=== PATIENT | female | born 1955 | race African-American/Black ===

== ENCOUNTER 2017-12-10 12:55 | Inpatient (IN) ==
[2017-12-10] MEDS ORDERED: hydrALAZINE 20 MG/1 ML VIAL IV STA ×2 (13:21→16:43)
[2017-12-10] MEDS ORDERED: levETIRAcetam 500 MG/5 ML VIAL IV ONE (13:23)
[2017-12-10] MEDS ORDERED: hydrALAZINE 20 MG/1 ML VIAL ONE ×2 (13:24→17:26)
[2017-12-10 15:34] LABS: Alanine Aminotransferase 13 U/L (13-56); Albumin 3.3 G/DL (3.4-5.0); Alkaline Phosphatase 79 U/L (45-117); Aspartate Amino Transferase 27 U/L (0-37); Blood Urea Nitrogen 11 MG/DL (7-18); Calcium 6.6 MG/DL (8.5-10.1); Glucose 84 MG/DL (74-106); Osmolality,Calculated 274.5 MOS/KG (273-304); Potassium 3.4 MMOL/L (3.5-5.1); Sodium 139 MMOL/L (136-145); Total Protein 8.1 G/DL (6.4-8.3)
[2017-12-10 15:35] LABS: Troponin I Only 0.733 NG/ML (0.00-0.045)
[2017-12-10 15:47] LABS: INR 1.1; PT Patient Result 11.3 SECS; Partial Thromboplastin Time 22.3 SECS (0-40)
[2017-12-10 15:56] LABS: Basophils % 0.5 % (0.0-0.8); Eosinophils # 0.2 10*3/uL (0.0-0.87); Eosinophils % 3.3 % (0.00-10.9); Hemoglobin 8.4 GM/DL (12.0-16.0); Immature Granulocytes % 0.5 %; Immature Granulocytes Absolute 0.03 #; Lymphocytes # 1.1 10*3/uL (1.4-4.0); Lymphocytes % 18.3 % (21.3-54.2); Mean Corpuscular HGB Conc 28.6 GM/DL (32-36); Mean Corpuscular Hemoglobin 26 PG (27-34); Mean Corpuscular Volume 89.1 FL (87-102); Mean Platelet Volume 11.6 FL (9.6-12.0); Monocytes # 0.6 10*3/uL (0.11-0.8); Monocytes % 10.1 % (1.7-12.7); Neutrophils # 4.1 10*3/uL (1.4-7.4); Neutrophils % 67.3 % (38.7-73.9); Platelet Count 216 T/CUMM (130-400); Red Cell Distribution Width 16.4 % (9.3-17.3); White Blood Count 6.1 T/CUMM (4-12)
[2017-12-10 15:59] LABS: Hematocrit 29.4 VOL% (35.7-47.0)
[2017-12-10 16:10] LABS: Apearance,Urine CLEAR (Clear); Bilirubin,Urine Negative (Negative); Blood, Urine Negative (Negative); Glucose,Urine (UA) Negative (Negative); Ketones,Urine Negative (Negative); Nitrite,Urine Negative (Negative); Protein,Urine Negative; Urine Color Colorless (Yellow); Urine Specific Gravity 1.002 (1.001-1.035); Urine Urobilinogen < 2.0 EU/DL (0.2-1.0); WBC,Urine 1 /HPF (0-6)
[2017-12-10] MEDS ORDERED: NITROGLYCERIN 2% OINT 1 INCH/GM PACK TOP STA (16:11)
[2017-12-10] MEDS ORDERED: ASPIRIN 325 MG TABLET PO STA (16:11)
[2017-12-10] MEDS ORDERED: NITROGLYCERIN 2% OINT 1 INCH/GM PACK TOP ONE (16:12)
[2017-12-10] MEDS ORDERED: ASPIRIN 325 MG TABLET ONE (16:12)
[2017-12-10] MEDS ORDERED: METOPROLOL TARTRATE 5 MG/5 ML VIAL IV STA (16:23)
[2017-12-10] MEDS ORDERED: METOPROLOL TARTRATE 5 MG/5 ML VIAL IV ONE (17:26)
[2017-12-10] MEDS ORDERED: ONDANSETRON 4 MG/2 ML VIAL IV PRN (18:49)
[2017-12-10] MEDS ORDERED: DOCUSATE SODIUM 100 MG CAPSULE PO PRN (18:49)
[2017-12-10] MEDS: ENOXAPARIN 40 MG/0.4 ML SYRINGE SUBCUT SCH (19:52)
[2017-12-10] MEDS: MORPHINE 10 MG/1 ML VIAL IV PRN (19:53)
[2017-12-11] MEDS: MORPHINE 10 MG/1 ML VIAL IV PRN ×3 (00:55→16:30)
[2017-12-11 06:27] LABS: Calcium 6.3 MG/DL (8.5-10.1); Potassium 3.1 MMOL/L (3.5-5.1)
[2017-12-11] MEDS ORDERED: MAGNESIUM SULF RIDER 4 GM in PREMIX 1 EACH IV PRN (07:37)
[2017-12-11] MEDS ORDERED: MAGNESIUM SULF RIDER 2 GM in PREMIX 1 EACH IV PRN (07:37)
[2017-12-11] MEDS ORDERED: clonazePAM 0.5 MG TABLET PO PRN (07:38)
[2017-12-11] MEDS: VENLAFAXINE XR 75 MG CAPSULE PO SCH (09:43)
[2017-12-11] MEDS: POTASSIUM CHLORIDE 20 MEQ TABLET PO PRN ×4 (09:44→16:30)
[2017-12-11] MEDS: METOPROLOL SUCCINATE XL 50 MG TABLET PO SCH ×2 (09:44→21:14)
[2017-12-11] MEDS: PANTOPRAZOLE 40 MG TABLET PO SCH (09:44)
[2017-12-11] MEDS: LEVOTHYROXINE 112 MCG TABLET PO SCH (09:44)
[2017-12-11] MEDS: OLANZapine 5 MG TABLET PO SCH (09:44)
[2017-12-11] MEDS: amLODIPine 5 MG TABLET PO SCH (09:47)
[2017-12-11] MEDS: ASPIRIN EC 81 MG TABLET PO SCH (09:47)
[2017-12-11] MEDS: hydrALAZINE 20 MG/1 ML VIAL IV PRN (16:45)
[2017-12-11] MEDS: traZODone 50 MG TABLET PO SCH (21:14)
[2017-12-11] MEDS: ENOXAPARIN 40 MG/0.4 ML SYRINGE SUBCUT SCH (21:15)
[2017-12-12] MEDS: hydrALAZINE 20 MG/1 ML VIAL IV PRN (00:40)
[2017-12-12] MEDS: POTASSIUM CHLORIDE 20 MEQ TABLET PO PRN ×3 (00:41→05:39)
[2017-12-12] MEDS: MORPHINE 10 MG/1 ML VIAL IV PRN (05:40)
[2017-12-12 06:16] LABS: Basophils % 0.4 % (0.0-0.8); Eosinophils # 0.2 10*3/uL (0.0-0.87); Eosinophils % 3.3 % (0.00-10.9); Hematocrit 27.4 VOL% (35.7-47.0); Hemoglobin 7.9 GM/DL (12.0-16.0); Immature Granulocytes % 1.6 %; Immature Granulocytes Absolute 0.11 #; Lymphocytes # 1.3 10*3/uL (1.4-4.0); Lymphocytes % 18.7 % (21.3-54.2); Mean Corpuscular HGB Conc 28.8 GM/DL (32-36); Mean Corpuscular Hemoglobin 26 PG (27-34); Mean Corpuscular Volume 89.8 FL (87-102); Mean Platelet Volume 11.4 FL (9.6-12.0); Monocytes # 0.6 10*3/uL (0.11-0.8); Monocytes % 8.6 % (1.7-12.7); Neutrophils # 4.7 10*3/uL (1.4-7.4); Neutrophils % 67.4 % (38.7-73.9); Platelet Count 240 T/CUMM (130-400); Red Blood Count 3.05 MC/CUMM (3.8-5.5); Red Cell Distribution Width 16.9 % (9.3-17.3); White Blood Count 6.9 T/CUMM (4-12)
[2017-12-12 06:22] LABS: Calcium 6.2 MG/DL (8.5-10.1); Osmolality,Calculated 279.3 MOS/KG (273-304); Potassium 3.9 MMOL/L (3.5-5.1)
[2017-12-12 06:23] LABS: Risk Ratio 2.32
[2017-12-12] MEDS: PANTOPRAZOLE 40 MG TABLET PO SCH (09:20)
[2017-12-12] MEDS: VENLAFAXINE XR 75 MG CAPSULE PO SCH (09:20)
[2017-12-12] MEDS: amLODIPine 5 MG TABLET PO SCH ×2 (09:20→22:21)
[2017-12-12] MEDS: LEVOTHYROXINE 112 MCG TABLET PO SCH (09:20)
[2017-12-12] MEDS: METOPROLOL SUCCINATE XL 50 MG TABLET PO SCH (09:20)
[2017-12-12] MEDS: OLANZapine 5 MG TABLET PO SCH (09:20)
[2017-12-12] MEDS: ASPIRIN EC 81 MG TABLET PO SCH (09:20)
[2017-12-12] MEDS ORDERED: ACETAMINOPHEN 325 MG TABLET PO PRN (10:23)
[2017-12-12] MEDS ORDERED: SODIUM CHLORIDE 0.9% 1,000 ML IV PRN (15:56)
[2017-12-12] MEDS: oxyCODONE/ACETAMINOPHEN 5-325 MG TABLET PO PRN (16:06)
[2017-12-12] MEDS: ENOXAPARIN 40 MG/0.4 ML SYRINGE SUBCUT SCH (22:18)
[2017-12-12] MEDS: METOPROLOL SUCCINATE XL 100 MG TABLET PO SCH (22:19)
[2017-12-12] MEDS: levETIRAcetam 500 MG TABLET PO SCH (22:19)
[2017-12-12] MEDS: hydrALAZINE 25 MG TABLET PO SCH (22:20)
[2017-12-12] MEDS: traZODone 50 MG TABLET PO SCH (22:20)
[2017-12-13] MEDS: oxyCODONE/ACETAMINOPHEN 5-325 MG TABLET PO PRN ×2 (02:00→20:22)
[2017-12-13 05:14] LABS: Basophils % 0.4 % (0.0-0.8); Eosinophils # 0.3 10*3/uL (0.0-0.87); Eosinophils % 3.9 % (0.00-10.9); Hemoglobin 9.8 GM/DL (12.0-16.0); Immature Granulocytes % 1.2 %; Immature Granulocytes Absolute 0.08 #; Lymphocytes # 1.1 10*3/uL (1.4-4.0); Lymphocytes % 16.3 % (21.3-54.2); Mean Corpuscular HGB Conc 29.1 GM/DL (32-36); Mean Corpuscular Hemoglobin 26 PG (27-34); Mean Corpuscular Volume 88.7 FL (87-102); Mean Platelet Volume 11.1 FL (9.6-12.0); Monocytes # 0.6 10*3/uL (0.11-0.8); Monocytes % 9.1 % (1.7-12.7); Neutrophils # 4.7 10*3/uL (1.4-7.4); Neutrophils % 69.1 % (38.7-73.9); Platelet Count 222 T/CUMM (130-400); Red Cell Distribution Width 17.2 % (9.3-17.3); White Blood Count 6.7 T/CUMM (4-12)
[2017-12-13 05:17] LABS: Hematocrit 33.7 VOL% (35.7-47.0)
[2017-12-13 05:29] LABS: Calcium 7.4 MG/DL (8.5-10.1); Osmolality,Calculated 277.4 MOS/KG (273-304); Potassium 4.2 MMOL/L (3.5-5.1)
[2017-12-13] MEDS: OLANZapine 5 MG TABLET PO SCH (10:26)
[2017-12-13] MEDS: amLODIPine 5 MG TABLET PO SCH ×2 (10:26→20:22)
[2017-12-13] MEDS: VENLAFAXINE XR 75 MG CAPSULE PO SCH (10:26)
[2017-12-13] MEDS: LEVOTHYROXINE 112 MCG TABLET PO SCH (10:26)
[2017-12-13] MEDS: hydrALAZINE 25 MG TABLET PO SCH ×3 (10:27→20:22)
[2017-12-13] MEDS: METOPROLOL SUCCINATE XL 100 MG TABLET PO SCH ×2 (10:27→20:22)
[2017-12-13] MEDS: levETIRAcetam 500 MG TABLET PO SCH ×2 (10:27→20:22)
[2017-12-13] MEDS: PANTOPRAZOLE 40 MG TABLET PO SCH (10:27)
[2017-12-13] MEDS: ASPIRIN EC 81 MG TABLET PO SCH (10:29)
[2017-12-13] MEDS: ENOXAPARIN 40 MG/0.4 ML SYRINGE SUBCUT SCH (20:21)
[2017-12-13] MEDS: traZODone 50 MG TABLET PO SCH (20:23)
[2017-12-14 07:05] LABS: Calcium 8.5 MG/DL (8.5-10.1); Osmolality,Calculated 281.3 MOS/KG (273-304); Potassium 4.2 MMOL/L (3.5-5.1)
[2017-12-14] MEDS: LEVOTHYROXINE 112 MCG TABLET PO SCH (08:21)
[2017-12-14] MEDS: OLANZapine 5 MG TABLET PO SCH (08:21)
[2017-12-14] MEDS: VENLAFAXINE XR 75 MG CAPSULE PO SCH (08:21)
[2017-12-14] MEDS: levETIRAcetam 500 MG TABLET PO SCH (08:22)
[2017-12-14] MEDS: METOPROLOL SUCCINATE XL 100 MG TABLET PO SCH (08:22)
[2017-12-14] MEDS: hydrALAZINE 25 MG TABLET PO SCH (08:22)
[2017-12-14] MEDS: PANTOPRAZOLE 40 MG TABLET PO SCH (08:22)
[2017-12-14] MEDS: amLODIPine 5 MG TABLET PO SCH (08:22)
[2017-12-14] MEDS: ASPIRIN EC 81 MG TABLET PO SCH (08:45)
[2017-12-14 11:54] VITALS: BP 137/74
[2017-12-14 12:04] LABS: Basophils % 0.6 % (0.0-0.8); Eosinophils # 0.3 10*3/uL (0.0-0.87); Eosinophils % 5.2 % (0.00-10.9); Hematocrit 35.9 VOL% (35.7-47.0); Hemoglobin 10.8 GM/DL (12.0-16.0); Immature Granulocytes % 0.8 %; Immature Granulocytes Absolute 0.05 #; Lymphocytes % 15.2 % (21.3-54.2); Mean Corpuscular HGB Conc 30.1 GM/DL (32-36); Mean Corpuscular Hemoglobin 26 PG (27-34); Mean Corpuscular Volume 87.3 FL (87-102); Mean Platelet Volume 11.3 FL (9.6-12.0); Monocytes # 0.6 10*3/uL (0.11-0.8); Monocytes % 9.5 % (1.7-12.7); Neutrophils # 4.3 10*3/uL (1.4-7.4); Neutrophils % 68.7 % (38.7-73.9); Platelet Count 288 T/CUMM (130-400); Red Blood Count 4.11 MC/CUMM (3.8-5.5); Red Cell Distribution Width 17.2 % (9.3-17.3); White Blood Count 6.3 T/CUMM (4-12)
== END 2017-12-14 15:05 | disposition home health service (06) | DRG 101 ==
LOC: EDUNIT# → EDBD → N.ED 12:55 → SUATTDRO 17:05 → N.EDINP 17:05 → N.TELEN 18:00
PROVIDERS: ADMIT Internal Medicine; ATTEND Internal Medicine